=== PATIENT | female | born 2005 | race Hispanic/Latino ===

== ENCOUNTER 2025-05-03 03:20 | Observation (INO) | payer BC ==
[2025-05-03 04:24] LABS: #Basophils 0.04 10x3/uL (0.0-0.2); #Eosinophils 0.08 10x3/uL (0.0-0.7); #Monocytes 0.72 10x3/uL (0.11-0.59); #Neutrophils 9.10 10x3/uL (1.40-6.50); %Basophils 0.3 % (0.0-1.0); %Eosinophils 0.6 % (0.0-10.0); %Lymphocytes 21.5 % (21.0-51.0); %Monocytes 5.7 % (0.0-10.0); %Neutrophils 71.6 % (42.0-75.0); Hematocrit 37.0 % (36.0-47.0); Hemoglobin 12.5 g/dL (12.0-16.0); Mean Corpuscular Hemoglobin 30.0 pg (27.0-31.0); Mean Corpuscular Volume 88.7 fL (78.0-98.0); Platelet Count 223 10x3/uL (130-400); Red Blood Cell (RBC) Count 4.17 mill/uL (4.20-5.40); White Blood Cell (WBC) Count 12.72 10x3/uL (4.8-10.8)
[2025-05-03] MEDS ORDERED: Droperidol 5 MG/2 ML VIAL ONE (04:25)
[2025-05-03 04:31] LABS: BHCG - Serum Negative (NEGATIVE); Pregs Control Background? CLEAR/WHITE (CLR/WHITE); Pregs Control Bar Appear? YES (CONTROL BAR)
[2025-05-03 04:41] LABS: ALT (SGPT) 14 U/L (Less than 34); AST (SGOT) 21 U/L (11-34); Albumin 4.2 g/dL (3.1-4.5); Alkaline Phosphatase 71 U/L (40-110); Anion Gap 16 mmol/L (10-20); BUN (Urea Nitrogen) 10 mg/dL (7.0-18.7); Bilirubin, Total 0.4 mg/dL (0.3-1.2); Calc. Creatinine Clearance 0 mL/min (70-130); Calcium 9.4 mg/dL (7.8-10.44); Carbon Dioxide 24 mmol/L (22-29); Chloride 105 mmol/L (98-107); Globulin 3.3 g/dL (2.4-3.5); Glucose 97 mg/dL (70-105); Potassium 3.2 mmol/L (3.5-5.1); Sodium 142 mmol/L (136-145)
[2025-05-03 04:48] LABS: INR-International Normal Ratio 1.0; Prothrombin Time 13.5 sec (12.0-14.7)
[2025-05-03 04:49] LABS: PTT 33.2 sec (22.9-36.1)
[2025-05-03] MEDS ORDERED: Ondansetron PF 4 MG/2 ML Vial IVP PRN (05:18)
[2025-05-03] MEDS ORDERED: Acetaminophen 325 MG TAB PO PRN (05:18)
[2025-05-03] MEDS ORDERED: Calcium Carbonate 500 MG ChewTAB PO PRN (05:18)
[2025-05-03] MEDS ORDERED: Electrolyte Replacement Protocol 1 EACH FS SCH (05:30)
[2025-05-03 08:25] VITALS: TEMP 98.1
[2025-05-03 08:26] VITALS: BMI 18.5
[2025-05-03 11:23] VITALS: BP 110/67
[2025-05-03 11:45] LABS: Potassium 4.1 mmol/L (3.5-5.1)
== END 2025-05-03 12:14 | disposition home or self-care (01) ==
LOC: ERS 03:20 → 2SE 04:48
PROVIDERS: ADMIT Student in an Organized Health Care Education/Training Program; ATTEND Internal Medicine
DX: R51.9 Headache, unspecified (principal); R20.2 Paresthesia of skin
CPT/HCPCS: 36415; 70553; 76376; 80053; 84703; 85025; 85610; 85730; 93005; 96374; G0378; J1790